=== PATIENT | female | born 1980 | race African-American/Black ===

== ENCOUNTER 2016-12-09 18:37 | Emergency (ER) | payer MEDICAID, OTHER ==
[~2016-12-09] VITALS: Ht 167.6 cm; Wt 85.0 kg
[2016-12-09 18:39] VITALS: BP 131/75; PULSE 92; RESP 18; TEMP 98.3; O2SAT 100
== END 2016-12-09 20:45 | disposition left against medical advice (07) ==
LOC: NED 18:37
DX: Z53.21 Procedure and treatment not carried out due to patient leaving prior to being seen by health care provider (principal)
CPT/HCPCS: 99281